=== PATIENT | female | born 1960 | race Caucasian/White ===

== ENCOUNTER 2016-08-22 03:21 | Emergency (ER) | payer OTHER ==
[~2016-08-22 03:21] MED LIST: ASPIRIN BUFFER325 M1 PO; AUGMENTIN PO; BUSPAR; CELEXA PO; CIPRO PO; EFFEXOR; FERROUS GLUCON324 MG PO; FLEXERIL10 MG PO; HYDROCODONE-APA1 T43 PO; IBUPROFEN; LEVOFLOXACIN500 MG PO; LORTAB 5-325 M1 EACH PO; NAPROXEN; NIACIN500 M1 PO; ORUDIS75 M1 PO; PHENERGAN PO; PHENERGAN25 MG PO; PROTONIX PO; VICODIN 5/500 T1 TAB PO; VITAMIN B122500 MCG PO; ZOCOR20 MG PO; ZOFRAN PO
== END 2016-08-22 05:15 | disposition home or self-care (01) ==
LOC: CED 03:21
DX: I10 Essential (primary) hypertension (principal); F17.210 Nicotine dependence, cigarettes, uncomplicated; Z90.710 Acquired absence of both cervix and uterus; Z88.2 Allergy status to sulfonamides
CPT/HCPCS: 36415; 96374; 96375; 99284; J1100; J1200; J1885; J2765